=== PATIENT | female | born 2000 | race American Indian/Alaskan Native ===

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

== ENCOUNTER 2022-03-20 21:25 | Emergency (ER) | payer OTHER ==
[2022-03-20 23:21] LABS: Basophils # (Auto) 0.1 K/mm3 (0.0-0.1); Basophils % (Auto) 0.5 % (0.0-1.8); Eosinophils # (Auto) 0.1 K/mm3 (0.0-0.4); Eosinophils % (Auto) 1.1 % (0.0-4.3); Hematocrit 40.1 % (30.3-42.9); Hemoglobin 13.2 gm/dl (10.1-14.3); Lymphocytes # (Auto) 2.7 K/mm3 (1.2-5.4); Lymphocytes % (Auto) 23.1 % (13.4-35.0); Mean Corpuscular HGB Conc 33 % (30-34); Mean Corpuscular Volume 86 fl (79-97); Monocytes # (Auto) 0.7 K/mm3 (0.0-0.8); Monocytes % (Auto) 6.2 % (0.0-7.3); Platelet Count 386 K/mm3 (140-440); Red Blood Count 4.67 M/mm3 (3.65-5.03); Red Cell Distribution Width 13.8 % (13.2-15.2)
[2022-03-20 23:43] LABS: Alanine Aminotransferase 11 units/L (7-56); Albumin 4.6 g/dL (3.9-5); Blood Urea Nitrogen 9 mg/dL (7-17); Calcium 9.6 mg/dL (8.4-10.2); Hemolysis Index 1
[2022-03-20 23:46] LABS: BUN/Creatinine Ratio 15
[2022-03-21 01:31] LABS: Bilirubin,Urine Negative (Negative); Color,Urine Yellow (Yellow)
[2022-03-21 01:32] LABS: Blood,Urine Large (Negative); Urobilinogen,Urine 0.2 mg/dL (<2.0)
[2022-03-21 01:33] LABS: Mucus,Urine 3+ /HPF
[2022-03-21 01:34] LABS: WBC,Urine < 1.0 /HPF (0.0-6.0)
[2022-03-21] MEDS ORDERED: ONDANSETRON 4 MG/2 ML INJ IV ONE (01:47)
[2022-03-21] MEDS ORDERED: KETOROLAC 30 MG/1 ML INJ IV ONE (01:47)
[2022-03-21] MEDS ORDERED: MORPHINE 4 MG/1 ML INJ IV ONE (01:47)
[2022-03-21] MEDS ORDERED: SODIUM CHLORIDE 0.9% 1000 ML 1,000 ML IV ONE (01:47)
--- NOTE | 2022-03-21 03:11 | Emergency Department Report ---
ED Female HPI - General Chief complaint: Abdominal Pain Stated complaint: ABD PAIN Source: patient, EMS Mode of arrival: Ambulatory Limitations: No Limitations - History of Present Illness Initial comments: Patient is a nulliparous 21-year-old -[place] female with no past medical history who presents to the ED with complaint of acute onset persistent severe pelvic pain with heavy vaginal bleeding for the last 1 week. Patient states that she usually experiences dysmenorrhea but during this time the dysmenorrhea is more severe and multiple persistent. Patient also complains of nausea and vomiting intermittently for the last 2 days due to worsening pain. Patient denies lightheadedness, dizziness, syncope, chest pain, shortness of breath, fever, chills, dysuria, urinary frequency and urgency, change in vision, numbness and tingling or weakness of lower extremities bilaterally or diarrhea. MD Complaint: vaginal bleeding, pelvic pain, other -: Gradual, week(s) (1) Location: suprapubic Radiation: non-radiating Severity: severe Severity scale (0 -10): 8 Quality: cramping, sharp, aching Consistency: constant Improves with: none Worsens with: none Are you Now?: No Associated Symptoms: denies other symptoms, vaginal bleeding, abdominal pain (Suprapubic pain). denies: vaginal discharge, nausea/vomiting, fever/chills, headaches, loss of appetite, dysuria, hematuria, rash, seizure, shortness of breath, syncope, weakness - Related Data Sexually active: Yes : 0 Para: 0 A: 0 Previous Rx's Medication Instructions Recorded Last Taken Type Ibuprofen [Ibuprofen 400] 400 mg PO Q8HR PRN #20 tablet 05/19/17 Unknown Rx Clindamycin [Clindamycin CAP] 300 mg PO Q8H 10 Days #30 cap 04/02/19 Unknown Rx Ibuprofen [Motrin 800 MG tab] 800 mg PO Q8HR PRN #30 tablet 04/02/19 Unknown Rx Ibuprofen [Motrin] 800 mg PO Q8HR PRN #30 tablet 03/21/22 Unknown Rx Ondansetron [Zofran Odt] 4 mg PO Q6HR PRN #20 tab.rapdis 03/21/22 Unknown Rx metroNIDAZOLE [Flagyl] 500 mg PO Q12HR #14 tab 03/21/22 Unknown Rx traMADoL [Ultram] 50 mg PO Q6HR PRN #15 tablet 03/21/22 Unknown Rx Allergies Allergy/AdvReac Type Severity Reaction Status Date / Time No Known Allergies Allergy Unverified 05/19/17 02:22 ED Review of Systems ROS: Stated complaint: ABD PAIN Other details as noted in HPI Constitutional: denies: chills, fever Eyes: denies: eye pain, eye discharge, vision change ENT: denies: ear pain, throat pain Respiratory: denies: cough, shortness of breath, wheezing Cardiovascular: denies: chest pain, palpitations Endocrine: no symptoms reported Gastrointestinal: abdominal pain (suprapubic). denies: nausea, vomiting, diarrhea, constipation, melena Genitourinary: abnormal menses (Vaginal bleeding). denies: urgency, dysuria, discharge Musculoskeletal: denies: back pain, joint swelling, arthralgia Skin: denies: rash, lesions Neurological: denies: headache, weakness, paresthesias Psychiatric: denies: anxiety, depression Hematological/Lymphatic: denies: easy bleeding, easy bruising ED Past Medical Hx - Social History Smoking Status: Current Some Day Smoker Substance Use Type: None - Medications Home Medications: Home Medications Medication Instructions Recorded Confirmed Last Taken Type Ibuprofen [Ibuprofen 400] 400 mg PO Q8HR PRN #20 tablet 05/19/17 Unknown Rx Clindamycin [Clindamycin CAP] 300 mg PO Q8H 10 Days #30 cap 04/02/19 Unknown Rx Ibuprofen [Motrin 800 MG tab] 800 mg PO Q8HR PRN #30 tablet 04/02/19 Unknown Rx Ibuprofen [Motrin] 800 mg PO Q8HR PRN #30 tablet 03/21/22 Unknown Rx Ondansetron [Zofran Odt] 4 mg PO Q6HR PRN #20 tab.rapdis 03/21/22 Unknown Rx metroNIDAZOLE [Flagyl] 500 mg PO Q12HR #14 tab 03/21/22 Unknown Rx traMADoL [Ultram] 50 mg PO Q6HR PRN #15 tablet 03/21/22 Unknown Rx ED Physical Exam - General Limitations: No Limitations General appearance: alert, in no apparent distress - Head Head exam: Present: atraumatic, normocephalic, normal inspection - Eye Eye exam: Present: normal appearance, PERRL, EOMI Pupils: Present: normal accommodation - ENT ENT exam: Present: normal exam, normal orophraynx, mucous membranes moist, TM's normal bilaterally, normal external ear exam - Neck Neck exam: Present: normal inspection, full ROM. Absent: tenderness - Respiratory Respiratory exam: Present: normal lung sounds bilaterally. Absent: respiratory distress, wheezes, rales, rhonchi, stridor, chest wall tenderness, accessory muscle use, decreased breath sounds, prolonged expiratory - Cardiovascular Cardiovascular Exam: Present: normal rhythm, tachycardia, normal heart sounds. Absent: systolic murmur, diastolic murmur, rubs, gallop - GI/Abdominal GI/Abdominal exam: Present: soft, tenderness (Palpable suprapubic tenderness), normal bowel sounds. Absent: guarding, rebound, rigid, hyperactive bowel so unds, hypoactive bowel sounds, organomegaly, bruit - External exam: Present: normal external exam Speculum exam: Present: vaginal bleeding Bi-manual exam: Present: other (Pelvic exam in the presence of female RN lump room supervisor Ms. Motley). Absent: normal bi-manual exam, cervical motion tendernes, adnexal tenderness, adnexal mass - Extremities Exam Extremities exam: Present: normal inspection, full ROM, normal capillary refill - Back Exam Back exam: Present: normal inspection, full ROM. Absent: tenderness, CVA tenderness (R), CVA tenderness (L), muscle spasm, paraspinal tenderness - Neurological Exam Neurological exam: Present: alert, oriented X3, CN II-XII intact, normal gait, reflexes normal - Psychiatric Psychiatric exam: Present: normal affect, normal mood - Skin Skin exam: Present: warm, dry, intact, normal color. Absent: rash ED Course Vital Signs 03/20/22 03/21/22 21:27 03:29 Temperature 98.2 F Pulse Rate 107 H 82 Respiratory 16 16 Rate Blood Pressure 138/64 [Right] O2 Sat by Pulse 98 100 Oximetry ED Medical Decision Making - Lab Data Result diagrams: 03/20/22 23:02 03/20/22 23:02 - Radiology Data Radiology results: report reviewed, image reviewed The pelvic ultrasound showed no significant sonographic abnormality of the uterus or left ovary. There was nonvisualization of the right ovary. No significant cystic or solid mass in the right adnexa. - Medical Decision Making This is a nulliparous 21-year-old -[place] female with no past medical history who presents to the ED with complaint of acute onset persistent severe pelvic pain with heavy vaginal bleeding for the last 1 week. Patient states that she usually experiences dysmenorrhea but during this time the dysmenorrhea is more severe and multiple persistent. Patient also complains of nausea and vomiting intermittently for the last 2 days due to worsening pain. In the ED, patient is alert and oriented x3 and is not in any distress. Patient however is tachycardic and afebrile in the triage. Lab test results were reviewed and showed acute leukocytosis of 11,800. The rest of the lab test results are nonactionable including urinalysis. However the wet prep test was positive for Gardnerella vaginalis. Patient was treated for pain in the ED and was given antiemetics and normal saline 1 L IV bolus x1. Pelvic ultrasound was unremarkable with no acute abnormalities. Patient was therefore discharged home on medications for pain as well as antibiotics for bacterial vaginosis and was advised to follow-up with DEVELOPMENT REPRESENTATIVE physician in 7 to 10 days for reevaluation or return to the ED immediately if symptoms get worse. - Differential Diagnosis Dysmenorrhea; UTI; STD; ; ovarian cyst; bacterial vaginosis Critical care attestation.: If time is entered above; I have spent that time in minutes in the direct care of this critically ill patient, excluding procedure time. ED Disposition Clinical Impression: Severe dysmenorrhea, Bacterial vaginosis, Nausea and vomiting in adult patient Disposition: 01 HOME / SELF CARE / HOMELESS Is pt being admited?: No Does the pt Need Aspirin: No Condition: Stable Instructions: Nausea and Vomiting, Adult, [id number], Bacterial Vaginosis, [id number], Dysmenorrhea, [id number], Bacterial Vaginosis (ED), Abdominal Pain (ED) Additional Instructions: All lab test results were reviewed and are all nonactionable except for wet prep test that was positive for Gardnerella vaginalis which is the bacteria responsible for bacterial vaginosis which is not a sexually transmitted disease. Pelvic ultrasound showed no acute abnormalities. Therefore take medication with food, drink plenty of fluids, follow-up with your primary care physician or DEVELOPMENT REPRESENTATIVE physician in 7 to 10 days for reevaluation. Return to the ED immediately if symptoms get worse. Prescriptions: metroNIDAZOLE [Flagyl] 500 mg PO Q12HR #14 tab Ibuprofen [Motrin] 800 mg PO Q8HR PRN #30 tablet PRN Reason: Pain , Severe (7-10) traMADoL [Ultram] 50 mg PO Q6HR PRN #15 tablet PRN Reason: Pain Ondansetron [Zofran Odt] 4 mg PO Q6HR PRN #20 tab.rapdis PRN Reason: Nausea Referrals: LIANNA GILL MD [Staff Physician] - 7-10 days Forms: Work/School Release Form(ED), STI Treatment and Prevention Time of Disposition: 05:29 Print Language: MALTESE
--- NOTE | 2022-03-21 05:36 | Ultrasound Report ---
ULTRASOUND PELVIS INDICATION / CLINICAL INFORMATION: pelvic pain, vaginal bleeding. TECHNIQUE: Transabdominal. Duplex Color Doppler used: Yes. COMPARISON: None available FINDINGS: UTERUS: The uterus measures 7.5 cm. The uterus demonstrates a normal sonographic appearance. The end ometrial stripe measures 0.5 cm. RIGHT ADNEXA: Right ovary is not visualized. No cyst or solid adnexal mass. LEFT ADNEXA: No significant ovarian cyst or mass. Normal color Doppler blood flow. URINARY BLADDER: No significant abnormality. FREE FLUID: None. ADDITIONAL FINDINGS: None. IMPRESSION: 1. No significant sonographic abnormality of the uterus or left ovary. 2. Nonvisualization of the right ovary. No significant cystic or solid mass in the right adnexa. Signer Name: Senthil Wood MD Signed: 03/21/2022 5:31 AM Workstation Name: [id number]
[2022-03-21 06:22] VITALS: BP 132/69
== END 2022-03-21 06:36 | disposition home or self-care (01) ==
LOC: ED 21:25
DX: N94.6 Dysmenorrhea, unspecified (principal); N76.0 Acute vaginitis; R10.9 Unspecified abdominal pain; F17.200 Nicotine dependence, unspecified, uncomplicated
CPT/HCPCS: 36415; 76856; 80053; 81001; 84703; 85025; 87210; 96361; 96374; 96375; 99284; J1885; J2270; J2405; J7030

== ENCOUNTER 2022-04-18 22:40 | Emergency (ER) | payer OTHER ==
[2022-04-19] MEDS ORDERED: ONDANSETRON 4 MG ODT TAB PO ONE (03:45)
[2022-04-19] MEDS ORDERED: SODIUM CHLORIDE 0.9% 1000 ML 1,000 ML IV ONE (04:57)
[2022-04-19] MEDS ORDERED: ONDANSETRON 4 MG/2 ML INJ IV ONE (04:57)
[2022-04-19] MEDS ORDERED: MORPHINE 4 MG/1 ML INJ IV ONE (04:57)
[2022-04-19 05:57] LABS: Color,Urine Brown (Yellow)
[2022-04-19 05:59] LABS: Basophils # (Auto) 0.1 K/mm3 (0.0-0.1); Basophils % (Auto) 0.4 % (0.0-1.8); Eosinophils # (Auto) 0.1 K/mm3 (0.0-0.4); Hematocrit 40.7 % (30.3-42.9); Hemoglobin 13.3 gm/dl (10.1-14.3); Lymphocytes # (Auto) 2.8 K/mm3 (1.2-5.4); Lymphocytes % (Auto) 22.6 % (13.4-35.0); Mean Corpuscular HGB Conc 33 % (30-34); Mean Corpuscular Volume 86 fl (79-97); Monocytes # (Auto) 0.7 K/mm3 (0.0-0.8); Monocytes % (Auto) 5.6 % (0.0-7.3); Platelet Count 380 K/mm3 (140-440); Red Blood Count 4.72 M/mm3 (3.65-5.03); Red Cell Distribution Width 13.1 % (13.2-15.2)
[2022-04-19 06:02] LABS: Mucus,Urine FEW /HPF
[2022-04-19 06:06] LABS: HCG Qualitative,Urine Negative (Negative); RBC,Urine > 182.0 /HPF (0.0-6.0)
[2022-04-19 06:32] LABS: Blood Urea Nitrogen 9 mg/dL (7-17); Calcium 10.1 mg/dL (8.4-10.2); Hemolysis Index 4
[2022-04-19 06:35] LABS: BUN/Creatinine Ratio 18
[2022-04-19] MEDS ORDERED: IBUPROFEN 600 MG TAB PO ONE (06:35)
[2022-04-19 08:25] VITALS: BP 108/60
--- NOTE | 2022-04-19 08:25 | Emergency Department Report ---
ED Abdominal Pain HPI - General Chief Complaint: Abdominal Pain Stated Complaint: ABD PAIN Time Seen by Provider: 04/19/22 04:54 Source: EMS Mode of arrival: Stretcher Limitations: No Limitations - History of Present Illness Initial Comments: 20-year-old female presents to the ED complaining abdominal pain. Patient states that she is current on her menstrual cycle and is having heavy cramp. Patient states that she had a similar problem last month and presented to the ED. states she did not have an ID and unable to follow-up with EDUCATION NURSE. She states pain was an 8 out of 10. She denies any vaginal discharge , fever or vomiting at present time. States she was nauseated. States that last time she was here we will she was given tramadol that did not relieve the pain. Patient is alert and oriented x3 , lying in the bed with her significant other. No acute distress noted. No ill appearance noted. MD Complaint: abdominal pain Onset/Timin -: hour(s) Location: diffuse Severity scale (0 -10): 8 Consistency: intermittent Improves With: nothing Worsens With: nothing Associated Symptoms: denies other symptoms - Related Data Previous Rx's Medication Instructions Recorded Last Taken Type Ibuprofen [Ibuprofen 400] 400 mg PO Q8HR PRN #20 tablet 05/19/17 Unknown Rx Clindamycin [Clindamycin CAP] 300 mg PO Q8H 10 Days #30 cap 04/02/19 Unknown Rx Ibuprofen [Motrin 800 MG tab] 800 mg PO Q8HR PRN #30 tablet 04/02/19 Unknown Rx Ibuprofen [Motrin] 800 mg PO Q8HR PRN #30 tablet 03/21/22 Unknown Rx Ondansetron [Zofran Odt] 4 mg PO Q6HR PRN #20 tab.rapdis 03/21/22 Unknown Rx metroNIDAZOLE [Flagyl] 500 mg PO Q12HR #14 tab 03/21/22 Unknown Rx traMADoL [Ultram] 50 mg PO Q6HR PRN #15 tablet 03/21/22 Unknown Rx Naproxen [Naprosyn] 500 mg PO BID 15 Days #30 tablet 04/19/22 Unknown Rx Ondansetron (Nf) [Zofran TAB] 8 mg PO Q8HR PRN 3 Days #12 tablet 04/19/22 Unknown Rx Allergies Allergy/AdvReac Type Severity Reaction Status Date / Time No Known Allergies Allergy Unverified 05/19/17 02:22 ED Review of Systems ROS: Stated complaint: ABD PAIN Other details as noted in HPI Constitutional: denies: chills, fever Eyes: denies: eye pain, eye discharge, vision change ENT: denies: ear pain, throat pain Respiratory: denies: cough, shortness of breath, wheezing Cardiovascular: denies: chest pain, palpitations Endocrine: no symptoms reported Gastrointestinal: abdominal pain, vomiting. denies: nausea, diarrhea Genitourinary: denies: urgency, dysuria, discharge Musculoskeletal: denies: back pain, joint swelling, arthralgia Skin: denies: rash, lesions Neurological: denies: headache, weakness, paresthesias Psychiatric: denies: anxiety, depression Hematological/Lymphatic: denies: easy bleeding, easy bruising ED Past Medical Hx - Past Medical History Previous Medical History?: No - Surgical History Past Surgical History?: No - Social History Smoking Status: Unknown if ever smoked Substance Use Type: None - Medications Home Medications: Home Medications Medication Instructions Recorded Confirmed Last Taken Type Ibuprofen [Ibuprofen 400] 400 mg PO Q8HR PRN #20 tablet 05/19/17 Unknown Rx Clindamycin [Clindamycin CAP] 300 mg PO Q8H 10 Days #30 cap 04/02/19 Unknown Rx Ibuprofen [Motrin 800 MG tab] 800 mg PO Q8HR PRN #30 tablet 04/02/19 Unknown Rx Ibuprofen [Motrin] 800 mg PO Q8HR PRN #30 tablet 03/21/22 Unknown Rx Ondansetron [Zofran Odt] 4 mg PO Q6HR PRN #20 tab.rapdis 03/21/22 Unknown Rx metroNIDAZOLE [Flagyl] 500 mg PO Q12HR #14 tab 03/21/22 Unknown Rx traMADoL [Ultram] 50 mg PO Q6HR PRN #15 tablet 03/21/22 Unknown Rx Naproxen [Naprosyn] 500 mg PO BID 15 Days #30 tablet 04/19/22 Unknown Rx Ondansetron (Nf) [Zofran TAB] 8 mg PO Q8HR PRN 3 Days #12 tablet 04/19/22 Unknown Rx ED Physical Exam - General Limitations: No Limitations General appearance: alert, in no apparent distress - Head Head exam: Present: atraumatic, normocephalic - Eye Eye exam: Present: normal appearance - ENT ENT exam: Present: mucous membranes moist - Neck Neck exam: Present: normal inspection - Respiratory Respiratory exam: Present: normal lung sounds bilaterally. Absent: respiratory distress - Cardiovascular Cardiovascular Exam: Present: regular rate, normal rhythm. Absent: systolic murmur, diastolic murmur, rubs, gallop - GI/Abdominal GI/Abdominal exam: Present: soft, normal bowel sounds - Extremities Exam Extremities exam: Present: normal inspection - Back Exam Back exam: Present: normal inspection - Neurological Exam Neurological exam: Present: alert, oriented X3 - Psychiatric Psychiatric exam: Present: normal affect, normal mood - Skin Skin exam: Present: warm, dry, intact, normal color. Absent: rash ED Course Vital Signs 04/18/22 22:51 Temperature 98.1 F Pulse Rate 101 H Respiratory 18 Rate Blood Pressure 130/90 O2 Sat by Pulse 97 Oximetry ED Medical Decision Making - Lab Data Result diagrams: 04/19/22 05:09 04/19/22 05:09 - Medical Decision Making 20-year-old female presents to the ED complaining abdominal pain. Patient states that she is current on her menstrual cycle and is having heavy cramp. Patient states that she had a similar problem last month and presented to the ED. states she did not have an ID and unable to follow-up with EDUCATION NURSE. She states pain was an 8 out of 10. She denies any vaginal discharge , fever or vomiting at present time. States she was nauseated. States that last time she was here we will she was given tramadol that did not relieve the pain. Patient is alert and oriented x3 , lying in the bed with her significant other. No acute distress noted. No ill appearance noted. She states pain is a current 0 out of 10 at the given morphine and Zofran IV. Explained to patient that she needs to follow-up with EDUCATION NURSE Rechecked the patient is resting quietly , comfortable and feeling better. I discussed the results of diagnostic study, my clinical impression and the plan for further treatment with the patient. Patient agrees with plan and discharge at this present time. All question addressed. I have given the patient instruction regarding a diagnosis ,expectation ,follow- up and return precaution. I explained to the patient that emergent condition may arise and to return to the ED for new worsen and any new persisting condition. I have explained the importance of following up with the primary care physician or referral physician listed below has instructed. The patient verbalized understanding of discharge instruction. Critical care attestation.: If time is entered above; I have spent that time in minutes in the direct care of this critically ill patient, excluding procedure time. ED Disposition Clinical Impression: Dysmenorrhea Disposition: 01 HOME / SELF CARE / HOMELESS Is pt being admited?: No Does the pt Need Aspirin: No Condition: Stable Instructions: Abdominal Pain (ED), Dysmenorrhea, [id number] Additional Instructions: Take medication as prescribed Return ED for any worsening symptom Prescriptions: Naproxen [Naprosyn] 500 mg PO BID 15 Days #30 tablet Ondansetron (Nf) [Zofran TAB] 8 mg PO Q8HR PRN 3 Days #12 tablet PRN Reason: Nausea Referrals: PRIMARY CARE, [Primary Care Provider] - 3-5 Days [facility] [Provider Group] - 3-5 Days Forms: Work/School Release Form(ED) Time of Disposition: 08:27
== END 2022-04-19 08:55 | disposition home or self-care (01) ==
LOC: ED 22:40
DX: N94.6 Dysmenorrhea, unspecified (principal)
CPT/HCPCS: 36415; 80048; 81001; 81025; 85025; 96361; 96374; 96375; 99284; J2270; J2405; J7030; J3490; Q0162